=== PATIENT | male | born 1985 | race Hispanic/Latino ===

== ENCOUNTER 2016-06-02 03:28 | Emergency (ER) | payer OTHER ==
[~2016-06-02] VITALS: Ht 162.6 cm; Wt 70.5 kg
[2016-06-02] MEDS ORDERED: PERCOCET 5/325M1 TAB PO (05:39)
[2016-06-02 06:16] VITALS: BP 110/68
== END 2016-06-02 06:15 | disposition home or self-care (01) | DRG 605 ==
LOC: EDBD 03:28 → ED 03:28
PROC: 0HQGXZZ Repair Left Hand Skin, External Approach (ICD-10-PCS; principal; 2016-06-02)
DX: S61.412A Laceration without foreign body of left hand, initial encounter (principal); S00.81XA Abrasion of other part of head, initial encounter; V49.59XA Passenger injured in collision with other motor vehicles in traffic accident, initial encounter; Y92.410 Unspecified street and highway as the place of occurrence of the external cause